=== PATIENT | male | born 1985 | race Caucasian/White ===

== ENCOUNTER 2021-10-06 12:35 | Emergency (ER) | payer MEDICAID ==
[~2021-10-06] VITALS: Ht 188 cm; Wt 86.4 kg
[2021-10-06 13:02] VITALS: BP 119/72
== END 2021-10-06 14:55 | disposition home or self-care (01) ==
LOC: ER 12:36
DX: M79.672 Pain in left foot (principal); M77.32 Calcaneal spur, left foot; Z72.89 Other problems related to lifestyle
CPT/HCPCS: 73630; 99283